=== PATIENT | male | born 2000 | race Caucasian/White ===

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

== ENCOUNTER 2023-08-04 13:47 | Emergency (ER) | payer BC, SELFPAY ==
[2023-08-04 13:47] VITALS: BP 160/93; PULSE 93; RESP 16; TEMP 37.2; O2SAT 100
--- NOTE | 2023-08-04 13:59 | ED_ITS ---
HPI - Wound/Laceration General Chief Complaint: Skin/Abscess/Foreign Body Stated Complaint: abscess on tailbone Time Seen by Provider: 08/04/23 13:54 Source: patient Mode of arrival: ambulatory Limitations: no limitations History of Present Illness HPI narrative: Patient presents with abscess to be lower tail bone area nonfluctuant red tender to touch with no fever chills currently no drainage no nausea vomiting or abdominal pain no chest pain or shortness of breath. Onset (ago): day(s) Location: other Related Data Allergies Allergy/AdvReac Type Severity Reaction Status Date / Time tree nut Allergy Unknown Verified 08/08/21 22:29 Review of Systems Review of Systems: All systems reviewed & are unremarkable except as noted in HPI and below PMFSH Past Medical History Medical History Patient denies medical problems Exam Const: General: healthy appearing Nutritional Appearance: well nourished Orientation/consciousness: patient oriented x3 Limitations: no limitations Resp: Effort & Inspection: normal respiratory effort Auscultation: clear to auscultation bilaterally Cardio: Rate: regular rate Rhythm: regular rhythm GI: GI Palp: Yes Soft to palpation Auscultation: normal bowel sounds Skin: Other: Tender soft nonfluctuant area tailbone with mild erythema with no drainage Extrem: General: normal to inspection Course Course Emergency Course: patient evaluated will be sending antibiotics to his local pharmacy advised elliott reynoso to use warm compress to affected area along with antibiotics. Vital Signs Vital signs: Vital Signs Temperature 37.2 C 08/04/23 13:47 Pulse Rate 93 08/04/23 13:47 Respiratory Rate 16 08/04/23 13:47 Blood Pressure 160/93 H 08/04/23 13:47 Pulse Oximetry 100 08/04/23 13:47 Oxygen Delivery Room Air 08/04/23 13:47 Temperature 37.2 C 08/04/23 13:47 Pulse Rate 93 08/04/23 13:47 Respiratory Rate 16 08/04/23 13:47 Blood Pressure 160/93 H 08/04/23 13:47 Pulse Oximetry 100 08/04/23 13:47 Oxygen Delivery Room Air 08/04/23 13:47 Critical Care Time Critical Care Time Critical Care Time: No Discharge Plan Discharge Clinical Impression: Abscess Patient Disposition: Home, Self-Care Condition: Stable Instructions: Antibiotic Form, Abscess (ED) Additional Instructions: advised to take medicine as prescribed can use warm compress to affected area Tylenol or Motrin for pain. Prescriptions: New sulfamethoxazole-trimethoprim [Bactrim DS] 800-160 mg tablet 1 tablet PO Q12H Qty: 20 0RF No Action alprazolam [Xanax] 0.5 mg tablet 0.5 mg PO TID PRN (Reason: anxiety) Qty: 20 0RF Follow-up/Referrals: Terrie Lyle MD [Primary Care Provider] - Time of Disposition: 14:03
== END 2023-08-04 14:15 | disposition home or self-care (01) ==
PROVIDERS: Emergency Provider Emergency Medicine; PCP Internal Medicine
DX: L02.212 Cutaneous abscess of back [any part, except buttock and flank] (principal)
CPT/HCPCS: 99283

== ENCOUNTER 2024-01-19 13:00 | Outpatient (CLI) | payer BC, SELFPAY ==
--- NOTE | 2024-01-19 13:07 | ECHO_ITS ---
Patient Info Name: Devonte Key Age: 23 years : 2000 Gender: Male Ht: 71 in Wt: 160 lbs BSA: 1.91 m2 HR: 53 bpm Technical Quality: Good Exam Date: 01/19/2024 12:57 PM Exam Location: [facility] Patient Status: Outpatient Admit Date: 01/19/2024 Staff Ordering Physician: Terrie Lyle MD Studio Artist: Gary Moreno RDCS Attending Provider: Terrie Lyle MD Referring Physician: Valdo MONAHAN; Exam Type: CA echo doppler color flow Study Info Indications - palpatation Complete two-dimensional, color flow and Doppler transthoracic echocardiogram is performed. Summary 1. Complete two-dimensional, color flow and Doppler transthoracic echocardiogram is performed. 2. Left ventricular chamber dimension is normal. 3. Left ventricular systolic function is normal, estimated at 60-65%. 4. The left ventricular diastolic function is normal. 5. E/e' 5 is not elevated. 6. There is mild tricuspid valve regurgitation. 7. No pulmonary hypertension, estimated pulmonary arterial systolic pressure is 10 mmHg. Left Ventricle E/e' 5 is not elevated. Left ventricular chamber dimension is normal. Left ventricular systolic function is normal, estimated at 60-65%. The left ventricular diastolic function is normal. Right Ventricle Right ventricular systolic function is normal and with normal TAPSE 2.0 cm. Right ventricular chamber dimension is normal. Left Atria Left atrial chamber dimension is normal. Right Atria Right atrial chamber dimension is normal. Aortic Valve The aortic valve is trileaflet. There is no aortic valve stenosis. There is no aortic valve regurgitation. Pulmonic Valve There is no pulmonic regurgitation. Mitral Valve There is no mitral valve stenosis. There is no mitral valve regurgitation. Tricuspid Valve There is mild tricuspid valve regurgitation. No pulmonary hypertension, estimated pulmonary arterial systolic pressure is 10 mmHg. Pericardium/Pleural There is no pericardial effusion. Inferior Vena Cava Normal inferior vena cava with >50% collapse upon inspiration consistent with normal right atrial pressure, 5 mmHg. Aorta The aortic root size at the sinus of Valsalva is normal. Left Ventricular Outflow Tract Name Value Normal LVOT 2D LVOT Diameter 2.1 cm LVOT Doppler LVOT Peak Velocity 81 cm/s LVOT Peak Gradient 3 mmHg LVOT Mean Gradient 2 mmHg LVOT VTI 17 cm LVOT VTI/AV VTI Ratio 0.9 LVOT Stroke Volume 61 ml Mitral Valve Name Value Normal MV Doppler MV Decel Bowman 290 cm/s2 MV PHT 61 ms MV Area (PHT) 3.6 cm2 MV Diastolic Function MV E Peak Velocity 61 cm
== END 2024-01-19 13:01 | disposition home or self-care (01) ==
PROVIDERS: PCP Internal Medicine; Visit Provider Internal Medicine
DX: R00.2 Palpitations (principal); I07.1 Rheumatic tricuspid insufficiency
CPT/HCPCS: 93306

== ENCOUNTER 2024-11-07 19:33 | Emergency (ER) | payer OTHER, SELFPAY ==
[2024-11-07 19:35] VITALS: BP 143/90; PULSE 116; RESP 18; TEMP 37.3; O2SAT 97
--- OUTSIDE RECORDS SUMMARY | 2024-11-07 19:35 | XMS_ITS | Referral Summary ---
Author Organization [facility] [address] Address [address] [place] [address] Care Team Providers Care Counselor Aide Name Role Phone Terrie Lyle MD Primary Care Provider [phone] Encounters Date Type Department Care Team Description 10/22/2024 1:00 PM CDT Office Visit [facility] Cardiology [address] [place] [address] Don Matt MD SVT (supraventricular tachycardia) (Primary Dx) from Last 3 Months Allergies Active Allergy Reactions Criticality Noted Date Comments Penicillins Rash Medium 07/20/2023 Medications buPROPion XL (WELLBUTRIN XL) 300 mg 24 hr tablet Take 1 tablet (300 mg total) by mouth daily 06/12/2024 Active propranoloL (INDERAL) 10 mg tablet Take 1 tablet (10 mg total) by mouth as needed 05/16/2024 Active escitalopram (LEXAPRO) 5 mg tablet Take 1 tablet (5 mg total) by mouth daily 06/12/2024 Active prazosin (MINIPRESS) 2 mg capsule Take 1 capsule (2 mg total) by mouth nightly Active Active Problems Problem Noted Date Diagnosed Date SVT (supraventricular tachycardia) 10/22/2024 Sensation of fullness in right ear 07/21/2023 Assessment & Plan (07/21/2023 8:41 PM CDT): He may have had an acute otitis media that ruptured on the right side. His hearing test is generally normal. He did have quite a bit of debris layering on his tympanic membrane which may have been drop residue or possibly dried exudate. His right ear was cleaned under the microscope after applying lidocaine and peroxide. Everything looks fine. He thinks his symptoms may be resolved. I told him to follow-up if they are not. Otherwise no need for further intervention. Bilateral impacted cerumen 07/21/2023 Assessment & Plan (07/21/2023 8:41 PM CDT): Both ears were cleaned under the microscope. He tolerated that well. Needs no further intervention. 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 Gender Identity Not on file Sexual Orientation Not on file Last Filed Vital Signs Vital Sign Reading Time Taken Comments Blood Pressure 122/70 10/22/2024 12:50 PM CDT Pulse 123 10/22/2024 12:50 PM CDT Temperature - - Respiratory Rate 18 10/22/2024 12:50 PM CDT Oxygen Saturation 97% 10/22/2024 12:50 PM CDT Inhaled Oxygen Concentration - - Weight 72.6 kg (160 lb) 10/22/2024 12:50 PM CDT Height 180.3 cm (5' 11) 10/22/2024 12:50 PM CDT Body Mass Index 22.32 10/22/2024 12:50 PM CDT Plan of Treatment Not on file Insurance [employer] [place] [facility] [id number] Care Teams Counselor Aide Relationship Specialty Start Date End Date Terrie Lyle MD [address] [place] [address] PCP - General Internal Medicine 06/13/23
--- OUTSIDE RECORDS SUMMARY | 2024-11-07 19:35 | XMS_ITS | Clinical Summary ---
Author Organization [facility] [address] Address [address] [place] [address] Care Team Providers Care Welt Trimming Machine Operator Name Role Phone Terrie Lyle MD Primary Care Provider [phone] Allergies Active Allergy Reactions Criticality Noted Date [...] further intervention. 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 Gender Identity Not on file Sexual Orientation Not on file Obstetrics History Last Filed Vital Signs Vital Sign Reading [...] 10/22/2024 12:50 PM CDT Plan of Treatment Health Maintenance Due Date Last Done Comments Depression Screening 2002 Hepatitis C Screening 2000 Pneumococcal vaccine <65 (1 of 1 - PPSV23) 2008 01/17/2004, 09/03/2003, 05/08/2003, Additional history exists HPV Vaccines (1 - Male 3-dos e series) 2017 Meningococcal B Vaccine (1 o f 2 - Standard) 2018 Regular Well Visit/Exam 18-64 2020 DTaP/Tdap/Td Vaccine (7 - Td or Tdap) 08/25/2023 08/24/2013, 09/16/2007, 06/01/2004, Additional history exists Influenza Vaccine (#1) 2024 Hepatitis B Screening Completed 09/03/2003 , 02/05/2003, 2002 Varicella Vaccines Completed 08/14/2013, 02/20/2004 Meningococcal Vaccine Completed 12/18/2019, 017 Insurance [facility] [place] [facility] [id number] Care Teams Welt Trimming Machine Operator Relationship Specialty Start Date End Date Terrie Lyle MD [address] [place] [address] PCP - General Internal Medicine 06/13/23
--- OUTSIDE RECORDS SUMMARY | 2024-11-07 19:35 | XMS_ITS | Clinical Summary ---
Author Organization [facility] [place] [address] Care Team Providers Care Levi Maker Name Role Phone Monster Cuellar Primary Care Provider [phone] Allergies No known active allergies Medications amoxicillin 250 MG capsule Take 250 mg by mouth 3 (three) times daily. Active Social History Tobacco Use Types Packs/Day Years Used Date Smoking Tobacco: Never Smokeless Tobacco: Never Sex and Gender Information Value Date Recorded Sex Assigned at Not on file Legal Sex Male 9:36 PM CDT Gender Identity Not on file Sexual Orientation Not on file Last Filed Vital Signs Vital Sign Reading Time Taken Comments Blood Pressure 135/71 10/20/2018 12:18 AM CDT Pulse 75 10/20/2018 12:18 AM CDT Temperature 37.6 C (99.6 F) 10/20/2018 12:18 AM CDT Respiratory Rate 18 10/20/2018 12:18 AM CDT Oxygen Saturation 99% 10/20/2018 12:18 AM CDT Inhaled Oxygen Concentration - - Weight 59 kg (130 lb) 10/19/2018 11:18 PM CDT Height 170.2 cm (5' 7) 10/19/2018 11:18 PM CDT Body Mass Index 20.36 10/19/2018 11:18 PM CDT Plan of Treatment Health Maintenance Due Date Last Done Comments Hepatitis B Vaccines (3 of 3 - 3-dose series) 10/29/2003 09/03/2003, 02/05/2003 Annual Physical 2005 DTaP, Tdap and Td Vaccines (6 - Tdap) 2013 09/16/2007, 06/01/2004, 09/03/2003, Additional history exists HPV Vaccines (1 - Male 3-dose series) 2017 Meningococcal B Vaccine (1 of 2 - Standard) 2018 Hepatitis C 2020 COVID-19 Vaccine ( - season) 2023 Pneumococcal Vaccine: Pediatrics (0 to 5 Years) and At-Risk Patients (6 to 49 Years) Aged Out 05/08/2003, 02/05/2003 No longer eligibl e based on patient's age to complete this topic Meningococcal Vaccine Completed 12/18/2019, 017 RSV Immunizations Under 20 Months Aged Out No longer eligible based on patient's age to complete this topic Insurance [employer] [facility] Care Teams Levi Maker Relationship Specialty Start Date End Date Monster Cuellar PA [address] [place] [id number] PCP - General PHYSICIAN SISAL OPERATOR 10/19/18
--- NOTE | 2024-11-07 19:53 | ED_ITS ---
HPI - URI/Sore Throat General Chief Complaint: Upper Respiratory Infection Stated Complaint: Feeling Unwell Time Seen by Provider: 11/07/24 20:03 Source: patient Mode of arrival: ambulatory Limitations: no limitations History of Present Illness HPI Narrative: 23-year-old male with ADHD presents to the ED with 1 week history of -- sore throat -- cough with pleuritic chest pain. cough is productive of purulent sputum. No shortness of breath. -- Fever -- body ache MD elicited complaint: fever, cough and sore throat Onset (ago): week(s) ( 1 week) Consistency: constant Severity: moderate Description of mucous: yellow Able to tolerate fluids by mouth: Yes Exacerbating factors: nothing Relieving factors: nothing Associated symptoms: denies other symptoms, fever, myalgias, sore throat and cough Treatments prior to arrival: none Related Data Allergies Allergy/AdvReac Type Severity Reaction Status Date / Time Penicillins Allergy Rash Verified 11/07/24 19:45 tree nut Allergy Unknown Verified 11/07/24 19:45 Review of Systems Review of Systems: All systems reviewed & are unremarkable except as noted in HPI and below Constitutional: Constitutional: Reports as per HPI, Reports no additional constitutional complaints, Reports fever(s) and Reports weakness Eyes: Eyes: Reports as per HPI and Reports no additional eye complaints ENT: Reports system reviewed and no additional complaints, except as documented, Reports as per HPI and Reports sore throat Cardiovascular: Cardiovascular: Reports as per HPI and Reports no additional cardiovascular complaints Respiratory: Respiratory: Reports as per HPI, Reports no additional respiratory complaints and Reports cough Comments: pleuritic pain Gastrointestinal: Gastrointestinal: Reports as per HPI and Reports no additional gastrointestinal complaints Genitourinary: Genitourinary: Reports no additional male genitourinary complaints and Reports as per HPI Musculoskeletal: Musculoskeletal: Reports no additional musculoskeletal complaints, Reports as per HPI and Reports myalgias Integumentary/Breasts: Skin/Breast: Reports system reviewed and no additional complaints, except as docu and Reports as per HPI Neurologic: Reports system reviewed and no additional complaints, except as documented and Reports as per HPI Psychiatric: Psychiatric: Reports no additional psychiatric complaints and Reports as per HPI Endocrine: Endocrine: Reports no additional endocrine complaints and Reports as per HPI Hematologic/Lymphatic: Hematologic/Lymphatic: Reports no additional hematologic/lymphatic complaints and Reports as per HPI Allergic/Immunologic: Allergic/Immunologic: Reports no additional allergic/immunologic complaints and Reports as per [facility] Past Medical History Medical History Patient denies medical problems Exam Narrative: afebrile. Pulse of 116 pressure 143/90. Const: Orientation/consciousness: patient oriented x3 Limitations: no limitations HENMT: Head: normal to inspection Ears: external ears normal Face/Nose/Sinus: Normal external nose present Face and sinus: normal facial exam Mouth: Yes Normal oral and palatal mucosa present Throat: posterior oropharynx normal Eyes: Conjunctivae: conjunctivae normal Pupils: Equal, round and reactive pupils present EOM: EOMs intact bilaterally Direct Ophthalmoscopy: no photophobia Neck: Neck: normal visual inspection, no lymphadenopathy and no meningeal signs Chest: Chest palpation & inspection: normal inspection of the chest Resp: Effort & Inspection: normal respiratory effort Auscultation: clear to auscultation bilaterally Cardio: Rate: regular rate Rhythm: regular rhythm GI: GI Palp: Yes Soft to palpation Auscultation: normal bowel sounds Other: No tenderness/ rigidity / rebound. : General: Yes no CVA tenderness Back/Spine/Pelvis: Back: no CVA tenderness Skin: General skin exam: normal color Rashes: no rashes Wounds: no wounds Neuro: General: patient oriented x3, moves all extremities, no meningeal signs, no focal motor deficits and CN's II-XI intact bilaterally Cranial nerves: Yes Nystagmus not present Speech: normal speech Gait exam (Neuro): Normal gait present Extrem: General: normal to inspection and no clubbing, cyanosis or edema Psych: Mental Status: mental status grossly normal Affect: normal affect Course Course Emergency Course: Upper respiratory tract infection-- patient tested negative for RSV, influenza, COVID and strep Acute bronchitis-- will treat with Zithromax. Vital Signs Vital signs: Vital Signs Temperature 37.3 C 11/07/24 19:35 Pulse Rate 116 H 11/07/24 19:35 Respiratory Rate 18 11/07/24 19:35 Blood Pressure 143/90 H 11/07/24 19:35 Pulse Oximetry 97 11/07/24 19:35 Oxygen Delivery Room Air 11/07/24 19:35 Temperature 37.1 C 11/07/24 21:00 Pulse Rate 100 11/07/24 21:00 Respiratory Rate 20 11/07/24 21:00 Blood Pressure 144/94 H 11/07/24 21:00 Pulse Oximetry 100 11/07/24 21:00 Oxygen Delivery Room Air 11/07/24 21:00 MDM - URI/Sore Throat MDM Narrative Medical decision making narrative: upper respiratory tract infection acute bronchitis Differential Diagnosis Differential diagnosis: Likely viral infection Medical Records Attestation: I reviewed the patient's medical records. Lab Data Attestation: I reviewed the patient's lab results. Labs: Lab Results 11/07/24 Range/Units 20:01 Influenza A (RT-PCR) Negative (Negative) Influenza B (RT-PCR) Negative (Negative) RSV (RT-PCR) Negative (Negative) SARS-CoV-2 RNA (RT-PCR) Negative (Negative) Group A Strep (PCR) Not detected (Negative) Discharge Plan Discharge Clinical Impression: Upper respiratory infection Qualifiers: URI type: unspecified URI Qualified Code(s): J06.9 - Acute upper respiratory infection, unspecified Acute bronchitis Qualifiers: Bronchitis organism: unspecified organism Qualified Code(s): J20.9 - Acute bronchitis, unspecified Patient Disposition: Home Condition: Stable Instructions: Antibiotic Form, Upper Respiratory Infection (ED), Acute Bronchitis (ED) Patient Language: Yi Prescriptions: New azithromycin [Zithromax] 250 mg tablet 250 mg PO DAILY 4 Days Qty: 4 0RF Rx Instructions: start on day 2 of therapy No Action sulfamethoxazole-trimethoprim [Bactrim DS] 800-160 mg tablet 1 tablet PO Q12H Qty: 20 0RF Follow-up/Referrals: Terrie Lyle MD [Primary Care Provider] - Time of Disposition: 21:14
--- NOTE | 2024-11-07 19:54 | PC.NURSE ---
DR PERRIN AT THE BEDSIDE
--- NOTE | 2024-11-07 20:02 | PC.NURSE ---
COVID AND STREP SWABS TAKEN DOWN TO LAB
--- OUTSIDE RECORDS SUMMARY | 2024-11-07 20:17 | XMS_ITS | Clinical Summary ---
Author Organization [facility] [address] [place] [address] Care Team Providers Care School Bus Mechanic Name Role Phone Terrie Lyle MD Primary Care Provider + [phone] Allergies Active Allergy Reactions Criticality Noted Date [...] 10/22/2024 1:00 PM CDT Office Visit 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
--- OUTSIDE RECORDS SUMMARY | 2024-11-07 20:17 | XMS_ITS | Referral Summary ---
Author Organization [facility] [address] Address [address] [place] [address] Care Team Providers Care Exterior Work Helper Name Role Phone Terrie Lyle MD Primary Care Provider [phone] Encounters Date Type Department Care Team Description 10/22/2024 1:00 PM CDT Office Visit 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
--- OUTSIDE RECORDS SUMMARY | 2024-11-07 20:17 | XMS_ITS | Clinical Summary ---
Author Organization [facility] Address [facility] [place] [address] Care Team Providers Care Procurement Director Name Role Phone Monster Cuellar Primary Care Provider Allergies No known active allergies Medications amoxicillin [...] patient's age to complete this topic Insurance [employer] Insurance [facility] Care Teams Procurement Director Relationship Specialty Start Date End Date Monster Cuellar PA [address] [place] [phone] PCP - General PHYSICIAN ECOTHERAPIST 10/19/18
[2024-11-07 20:39] LABS: Strep Group A RT-PCR NOT DETECTED (Negative)
[2024-11-07 20:45] LABS: Influenza A QL RT-PCR Negative (Negative); Influenza B QL RT-PCR Negative (Negative); RSV RNA, RT-PCR Negative (Negative); SARS-CoV-2 RNA PCR Negative (Negative)
[2024-11-07 21:00] VITALS: BP 144/94; PULSE 100; RESP 20; TEMP 37.1; O2SAT 100
[2024-11-07] MEDS: AZITHROMYCIN 250 MG TABLET 500 MG PO (21:18)
== END 2024-11-07 21:33 | disposition home or self-care (01) ==
PROVIDERS: Emergency Provider Internal Medicine Critical Care Medicine; PCP Internal Medicine
DX: J06.9 Acute upper respiratory infection, unspecified (principal); J20.9 Acute bronchitis, unspecified; Z20.822 Contact with and (suspected) exposure to COVID-19
CPT/HCPCS: 87637; 87651; 99283; A9270